=== PATIENT | male | born 1945 | race Caucasian/White ===

== ENCOUNTER 2021-10-25 07:51 | Inpatient (IN) | payer OTHER, BC ==
[2021-10-24 10:37] VITALS: BMI 32.6
[2021-10-25] MEDS ORDERED: MIDAZOLAM HCL 2 MG/2 ML SINGLE DOSE VIAL ONE ×2 (09:57→12:14)
[2021-10-25] MEDS ORDERED: BUPIVACAINE HCL/PF 0.5% (5MG/ML) 10 ML VIAL ONE (09:57)
[2021-10-25] MEDS ORDERED: BUPIVACAINE LIPOSOME/PF (EXPAREL) 266 MG/20 ML VIAL ONE (09:57)
[2021-10-25] MEDS ORDERED: SODIUM CHLORIDE 0.9% P/F 10 ML VIAL IJ ONE (09:57)
[2021-10-25] MEDS ORDERED: TRANEXAMIC ACID 1000 MG/10 ML VIAL IVPUSH ONE ×2 (10:00→18:00)
[2021-10-25] MEDS ORDERED: CEFAZOLIN 2 GM in DEXTROSE 5%-WATER - 50 ML IVPB ONE (10:00)
[2021-10-25] MEDS ORDERED: BUPIVACAINE HCL 50 ML ONE (11:21)
[2021-10-25] MEDS ORDERED: VANCOMYCIN 1,000 MG VIAL (RESTRICTED TO ID ONLY) ONE (12:01)
[2021-10-25] MEDS ORDERED: DEXAMETHASONE SOD PHOSPHATE 4 MG/1 ML VIAL ONE (12:25)
[2021-10-25] MEDS ORDERED: ceFAZolin SODIUM 1 GM VIAL ONE ×2 (12:25→20:19)
[2021-10-25] MEDS ORDERED: TRANEXAMIC ACID 1000 MG/10 ML VIAL ONE ×3 (12:25→18:03)
[2021-10-25] MEDS ORDERED: ONDANSETRON 4 MG/2 ML VIAL ONE (12:25)
[2021-10-25] MEDS ORDERED: PROPOFOL 20 ML ONE ×4 (12:29)
[2021-10-25] MEDS ORDERED: ePHEDrine SULFATE 50 MG/1 ML AMPULE ONE (12:41)
[2021-10-25] MEDS ORDERED: LIDOCAINE HCL 2% JELLY (5 ML/TUBE) ONE (12:44)
[2021-10-25] MEDS ORDERED: MAG HYDROX/AL HYDROX/SIMETH 30 ML UNIT-DOSE CUP PO PRN (15:22)
[2021-10-25] MEDS ORDERED: MAGNESIUM HYDROX 2400MG/30ML ORAL SUSPENSION 30 ML CUP PO PRN (15:22)
[2021-10-25] MEDS ORDERED: ONDANSETRON 4 MG/2 ML VIAL IVPUSH PRN ×2 (15:22→15:47)
[2021-10-25] MEDS ORDERED: LACTATED RINGERS SOLUTION 1,000 ML IV SCH (15:30)
[2021-10-25] MEDS ORDERED: oxyCODONE HCL 5 MG TABLET PO PRN (15:47)
[2021-10-25] MEDS ORDERED: DEXTROSE 5%-WATER - 100 ML IVPB ONE (20:19)
[2021-10-25] MEDS: CEFAZOLIN 2 GM in DEXTROSE 5%-WATER - 100 ML IVPB SCH (20:29)
[2021-10-25] MEDS: SENNOSIDES/DOCUSATE COMBO (SENNA PLUS) TABLET (UD) PO SCH (21:27)
[2021-10-25] MEDS: ASPIRIN 81 MG CHEWABLE TABLETS PO SCH (21:27)
[2021-10-25] MEDS: ACETAMINOPHEN 500 MG TABLET (FP) PO SCH (21:27)
[2021-10-25] MEDS: FAMOTIDINE 10 MG TABLET PO SCH (21:47)
[2021-10-25] MEDS ORDERED: GABAPENTIN 300 MG CAPSULE PO SCH (22:00)
[2021-10-25] MEDS ORDERED: TAMSULOSIN HCL 0.4 MG CAP PO SCH (22:00)
[2021-10-25] MEDS ORDERED: LISINOPRIL 20 MG TABLET PO SCH (22:00)
[2021-10-25] MEDS ORDERED: oxyCODONE HCL 10 MG SUSTAINED ACTING TABLET PO SCH (22:00)
[2021-10-25] MEDS ORDERED: ATORVASTATIN CA 10 MG TABLET (FP) PO SCH (22:00)
[2021-10-26] MEDS ORDERED: MELATONIN 1 MG TABLET PO ONE (00:21)
[2021-10-26] MEDS: oxyCODONE HCL 5 MG TABLET PO PRN ×2 (02:16→06:13)
[2021-10-26] MEDS ORDERED: DEXTROSE 5%-WATER - 100 ML IVPB ONE (02:38)
[2021-10-26] MEDS ORDERED: ceFAZolin SODIUM 1 GM VIAL ONE (02:38)
[2021-10-26] MEDS: CEFAZOLIN 2 GM in DEXTROSE 5%-WATER - 100 ML IVPB SCH (03:02)
[2021-10-26] MEDS: ACETAMINOPHEN 500 MG TABLET (FP) PO SCH ×2 (06:09→13:29)
[2021-10-26] MEDS: ASPIRIN 81 MG CHEWABLE TABLETS PO SCH (09:26)
[2021-10-26] MEDS: SENNOSIDES/DOCUSATE COMBO (SENNA PLUS) TABLET (UD) PO SCH (09:26)
[2021-10-26] MEDS: FAMOTIDINE 10 MG TABLET PO SCH (09:28)
[2021-10-26 09:44] LABS: CALCIUM 9.6 mg/dl (8.5-10); CREATININE 1.1 mg/dl (0.55-1.3)
[2021-10-26] MEDS ORDERED: [UNRECOGNIZED DRUG - OTHER] PO SCH (10:00)
[2021-10-26] MEDS ORDERED: MULTIVITAMINS (DAILY MVI) TABLET (FP) PO SCH (10:00)
[2021-10-26] MEDS ORDERED: CELECOXIB 200 MG CAPSULE PO SCH (10:00)
[2021-10-26] MEDS ORDERED: PANTOPRAZOLE 40 MG TABLET PO SCH (10:00)
[2021-10-26] MEDS ORDERED: CELECOXIB 200 MG CAPSULE PO ONE (10:00)
[2021-10-26 10:06] LABS: HEMOGLOBIN 13.3 GM/dL (11.7-16.9); MCH 31.9 pg (25.7-33.7); MEAN CELL VOLUME 91.1 fl (80-96); MEAN PLT VOLUME 8.4 fl (7.5-11.1); PLATELET COUNT 205 10^3/uL (134-434); RBC 4.17 M/mm3 (4.00-5.60); RDW 12.6 % (11.9-15.9); WHITE BLOOD COUNT 11.2 K/mm3 (4.0-10.0)
[2021-10-26] MEDS ORDERED: SODIUM CHLORIDE 1,000 ML IV ONE (11:30)
[2021-10-26 13:48] VITALS: BP 122/60; PULSE 68; TEMP 98.6
== END 2021-10-26 15:34 | disposition home or self-care (01) | DRG 470 ==
LOC: FASUSAT 07:51 → FM/S 08:27 → FASUSAT 20:26
PROVIDERS: ADMIT Orthopaedic Surgery; ATTEND Orthopaedic Surgery
PROC: 0SRC0J9 Replacement of Right Knee Joint with Synthetic Substitute, Cemented, Open Approach (ICD-10-PCS; principal; 2021-10-25 12:51)
DX: M17.11 Unilateral primary osteoarthritis, right knee (principal); I10 Essential (primary) hypertension; E78.5 Hyperlipidemia, unspecified; E66.9 Obesity, unspecified; Z68.32 Body mass index [BMI] 32.0-32.9, adult; N40.0 Benign prostatic hyperplasia without lower urinary tract symptoms
CPT/HCPCS: 36415; 73560-TC-RT-FY; 80048; 85027; 88305-TC; 88311-TC; 94760; 97010-GP; 97116-GP; 97163-GP; C9803; U0003; U0005